=== PATIENT | female | born 2005 | race Caucasian/White ===

== ENCOUNTER 2024-07-07 20:30 | Emergency (ER) | payer OTHER, SELFPAY ==
[2024-07-07 20:41] VITALS: BP 135/92; PULSE 99; RESP 17; TEMP 36.7; O2SAT 99
[2024-07-07 20:50] VITALS: BP 135/81; PULSE 117; RESP 19; TEMP 38.5; O2SAT 97; BMI 30.9
[2024-07-07] MEDS: acetaminophen 325 mg Tablet 650 MG PO (21:20)
[2024-07-07] MEDS: ondansetron 2 mg/ML SDV 2 mL 4 MG IVP (21:21)
--- NOTE | 2024-07-07 21:21 | ED_ITS ---
HPI - Fever 2 General: Chief Complaint: Fever Stated Complaint: Body Aches\V\F Time Seen by Provider: 07/07/24 21:03 History of Present Illness: Healthy 18-year-old who presents the emergency room with nausea, vomiting, diarrhea and bodyaches. She also has been having fever. She has temp of 101.3 here. She says she has not kept anything down all day today. No abdominal pain. No chest pain. Related Data Previous Rx's ?Medication ?Instructions ?Recorded ondansetron 8 mg disintegrating 8 mg PO Q6H #14 tabs 0 07/07/24 tablet Allergies Allergy/AdvReac Type Severity Reaction Status Date / Time amoxicillin Allergy ALGY-Hives Verified 07/07/24 20:55 Review of Systems 2 Narrative: Constitutional symptoms: Negative except as documented in HPI. Skin symptoms: Negative except as documented in HPI. Eye symptoms: Negative except as documented in HPI. ENMT symptoms: Negative except as documented in HPI. Respiratory symptoms: Negative except as documented in HPI. Cardiovascular symptoms: Negative except as documented in HPI. Gastrointestinal symptoms: Negative except as documented in HPI. Genitourinary symptoms: Negative except as documented in HPI. Musculoskeletal symptoms: Negative except as documented in HPI. Neurologic symptoms: Negative except as documented in HPI. Psychiatric symptoms: Negative except as documented in HPI. Endocrine symptoms: Negative except as documented in HPI. Physical Exam 2 Narrative: EXAM NARRATIVE: General: Alert, no acute distress. Skin: Warm, dry. Head: Normocephalic, atraumatic. Neck: Supple, trachea midline. Eye: Extraocular movements are intact. Ears, nose, mouth and throat: mucosa moist. Cardiovascular: Regular, Normal peripheral perfusion. Respiratory: Lungs are clear to auscultation, respirations are non-labored, breath sounds are equal, Symmetrical chest wall expansion. Gastrointestinal: Soft, Nontender, Non distended Musculoskeletal: Normal ROM, no deformity. Neurological: Alert and oriented, No focal neurological deficit observed. Psychiatric: Cooperative, appropriate mood & affect. Course 2 Vital Signs: Vital signs: Vital Signs Temperature 101.3 F H 07/07/24 20:50 Pulse Rate 117 H 07/07/24 20:50 Respiratory Rate 19 H 07/07/24 20:50 Blood Pressure 135/81 07/07/24 20:50 Pulse Oximetry 97 07/07/24 20:50 Oxygen Delivery Me thod Room Air 07/07/24 20:50 MDM - Fever Medical Decision Making Medical decision making: Differential diagnosis for this patient with nausea and vomiting including but not limited to and based on the above HPI, review of systems and physical exam: Urinary tract infection. Appendicitis. Cholecystis. colitis. small bowel obstruction. crohn's flare. pancreatitis. gastritis. peptic ulcer. cyclic vomiting. Viral illness. Influenza. COVID. Orders placed to evaluate differential diagnosis based on the above differential, HPI and physical exam Lab Review: Laboratory results were reviewed and interpreted by myself the emergency room physician. Mild leukocytosis. No anemia. No renal failure. Urinary evaluation is negative for infection. Does have a few reds. Flu COVID and RSV are negative I reviewed the patient's medical record. Reexamination: Patient is now tolerating p.o. Patient remained stable. No increased work of breathing. No altered mental status. No focal motor deficits. Assessment and plan: Viral gastroenteritis Dehydration Fever ?IV fluids, IV Zofran and p.o. Tylenol in the emergency room. - Discharged home - Discussed plan with patient. Answered any questions. - Evaluation and treatment of this problem were appropriate in the emergency setting. Lab Data 07/07/24 21:07/07/24 21: Laboratory Results WBC 14.93 10^3/uL (4.5-13.0) H 07/07/24: RBC 4.77 10^6/uL (3.85-5.65) 07/07/24 21: Hgb 13.60 g/dL (12.4-14.8) 07/07/24: Hct 41.7 % (36-47) 07/07/24 21: MCV 87.4 fl (85-98) 07/07/24 21: MCH 28.5 pg (27-33) 07/07/24 21: MCHC 32.6 g/dL (30-55) 07/07/24 21: RDW 13.2 % (12.1-15.1) 07/07/24 21: Plt Count 335 10^3/cmm (157-399) 07/07/24 21: MPV 8.8 fL (7.4-10.4) 07/07/24: Neut % (Auto) 91.3 % 07/07/24: Lymph % (Auto) 4.2 % 07/07/24: [place] % (Auto) 4.0 % 07/07/24: Eos % (Auto) 0.0 % 07/07/24: Baso % (Auto) 0.2 % 07/07/24: Neut # (Auto) 13.63 10^3/uL (1.8-8.0) H 07/07/24: Lymph # (Auto) 0.6 10^3/uL (1.5-6.5) L 07/07/24: [place] # (Auto) 0.6 10^3/uL (0.2-0.9) 07/07/24: Eos # (Auto) 0.0 10^3/uL (0.0-0.8) 07/07/24: Baso # (Auto) 0.0 10^3/uL (0.0-0.1) 07/07/24 Nucleated RBC % (auto) 0 % 07/07/24 Nucleated RBCs # 0.0 /100WBC 07/07/24: Sodium 136 mmol/L (136-145) 07/07/24: Potassium 4.1 mmol/L (3.5-5.1) 07/07/24: Chloride 99 mmol/L (98-107) 07/07/24: Carbon Dioxide 23 mmol/L (22-29) 07/07/24: Anion Gap 18.1 (5-19) 07/07/24: BUN 18 mg/dL (6-20) 07/07/24: Creatinine 0.9 mg/dL (0.5-0.9) 07/07/24: GFR Calculation 80.7 mL/min (90-130) L 07/07/24: Glucose 118 mg/dL (65-115) H 07/07/24: Calculated Osmolality 285 mOsm/kg (285-295) 07/07/24: Calcium 9.2 mg/dL (8.5-10.5) 07/07/24: Total Bilirubin 0.5 mg/dL (0.15-1.2) 07/07/24 21: AST 15 U/L (0-32) 07/07/24 21: ALT 15 U/L (0-33) 07/07/24 21: Alkaline Phosphatase 79 U/L (35-105) 07/07/24 21: Total Protein 8.0 g/dL (6.6-8.7) 07/07/24 21: Albumin 4.6 g/dL (3.5-5.2) 07/07/24: Globulin 3.4 g/dL (1.3-4.6) 07/07/24 21: Lipase 20 U/L (13-60) 07/07/24 21: HCG, Qual Negative (Negative) 07/07/24 21: Urine Color Yellow (Yellow) 07/07/24 21: Urine Appearance Clear (CLEAR) 07/07/24 21: Urine pH 7.0 (5-7) 07/07/24: Ur Specific [place] 1.030 (1.005-1.030) 07/07/24 21: Urine Protein Trace (Negative) A 07/07/24 21: Urine Glucose (UA) Negative (Normal) 07/07/24 21: Urine Ketones Trace (Negative) 07/07/24 21: Urine Blood 1+ (Negative) A 07/07/24 21: Urine Nitrate Negative (Negative) 07/07/24 21: Urine Bilirubin Negative (Negative) 07/07/24 21: Urine Urobilinogen 1.0 mg/dL (Negative) 07/07/24 21: Ur Leukocyte Esterase Trace (Negative) A 07/07/24 21: Urine RBC 21-50 /hpf (0-2) H 07/07/24 21: Urine WBC 6-10 /hpf (0-5) 07/07/24 21: Ur Squamous Epith Cells 6-10 /hpf (0-5) 07/07/24 21: Amorphous Sediment Not Reportable 07/07/24 21: Urine Bacteria Trace /hpf (NONE) 07/07/24 21: Hyaline Casts 0.40 /lpf 07/07/24 21:15 Influenza A (PCR) Negative (Negative) 07/07/24 21:33 Influenza Type B (PCR) Negative (Negative) 07/07/24 21:33 RSV (PCR) Negative (Negative) 07/07/24 21:33 SARS-CoV-2 (PCR) Negative (Negative) 07/07/24 21:33 No radiology studies performed this visit Discharge Plan Discharge Patient Disposition: Home Clinical Impression: Viral gastroenteritis Condition: Stable Prescriptions: New ondansetron 8 mg tablet,disintegrating 8 mg PO Q6H Qty: 14 0RF Rx Instructions: Take 1/2-1 tab every 6 hours as needed for nausea and vomiting Discharge Orders: Discharge ED (Routine); Ordered 07/07/24 Ordered By: Shantelle Gandara Patient Instructions: Opioid Safety, Pain Management Activity Restrictions/Additional Instructions: Thank you for choosing [facility] for your healthcare needs today. Please realize this is an emergency room and that we are providing you with a medical screening exam and this may not be complete and all inclusive of all the testing and or work up that you may need to determine your ailment or severity of your illness. You have been screened and evaluated and felt safe for discharge. Health conditions do change or evolve sometimes and as such it is important that you follow up with your Primary Doctor to be re checked, 3-5 days is a general good time frame for follow up. You are always welcome to return to the ED for re assessment if your symptoms are worsening or you have new concerns Print Language: Setswana Coding Level of Care Code ED [employer] for Martha Silva
[2024-07-07] MEDS: sodium chloride 0.9% 1,000 ML 999 ML IV (21:27)
[2024-07-07 21:40] LABS: Basophils % 0.2 %; Hematocrit 41.7 % (36-47); Lymphocytes # 0.6 10^3/uL (1.5-6.5); Lymphocytes % 4.2 %; Mean Corpuscular HGB Conc 32.6 g/dL (30-55); Mean Corpuscular Hemoglobin 28.5 pg (27-33); Mean Corpuscular Volume 87.4 fl (85-98); Mean Platelet Volume 8.8 fL (7.4-10.4); Monocytes # 0.6 10^3/uL (0.2-0.9); Neutrophils # 13.63 10^3/uL (1.8-8.0); Neutrophils % 91.3 %; Nucleated Red Blood Cells % 0 %; Platelet Count 335 10^3/cmm (157-399); Red Blood Count 4.77 10^6/uL (3.85-5.65); Red Cell Distribution Width 13.2 % (12.1-15.1); White Blood Count 14.93 10^3/uL (4.5-13.0)
[2024-07-07 21:42] LABS: Bilirubin Urine Negative (Negative); Blood Urine 1+ (Negative); Glucose Urine UA Negative (Normal); Ketones Urine Trace (Negative); Leukocyte Esterase Urine Trace (Negative); Nitrate Urine Negative (Negative); Protein Urine Trace (Negative); Urine Appearance Clear (CLEAR); Urine Color Yellow (Yellow)
[2024-07-07 21:47] LABS: Add Urine Microscopic? YES; Bacteria Urine Trace /hpf; RBC Urine 21-50 /hpf (0-2)
[2024-07-07 21:50] LABS: HCG, Serum Qual Negative (Negative)
[2024-07-07 21:56] LABS: Alanine Aminotransferase 15 U/L (0-33); Albumin Level 4.6 g/dL (3.5-5.2); Alkaline Phosphatase 79 U/L (35-105); Anion Gap 18.1 (5-19); Aspartate Amino Transferase 15 U/L (0-32); Blood Urea Nitrogen 18 mg/dL (6-20); Calcium 9.2 mg/dL (8.5-10.5); Carbon Dioxide 23 mmol/L (22-29); Chloride 99 mmol/L (98-107); Creatinine Clr Calc Pharmacy 103.9274; Globulin 3.4 g/dL (1.3-4.6); Glomerular Filtration Rate 80.7 mL/min (90-130); Glucose 118 mg/dL (65-115); Lipase 20 U/L (13-60); Osmolality Calculated 285 mOsm/kg (285-295); Potassium 4.1 mmol/L (3.5-5.1); Sodium 136 mmol/L (136-145); Total Bilirubin 0.5 mg/dL (0.15-1.2)
[2024-07-07 22:17] LABS: Influenza A NEGATIVE (Negative); Influenza B NEGATIVE (Negative); Respiratory Syncytial Virus Ce NEGATIVE (Negative); SARS-CoV-2 PCR NEGATIVE (Negative)
[2024-07-07 23:02] VITALS: BP 121/61; PULSE 99; O2SAT 99
[2024-07-07] MEDS: ondansetron hcl ODT 4 mg Tab 8 MG PO (23:02)
== END 2024-07-07 23:04 | disposition home or self-care (01) ==
PROVIDERS: Emergency Medicine; Emergency Provider Emergency Medicine
DX: A08.4 Viral intestinal infection, unspecified (principal); Z11.52 Encounter for screening for COVID-19
CPT/HCPCS: 36415; 80053; 81001; 83690; 84703; 85025; 87637; 96361; 96374; 99284; J2405; J7030; J9999; Q0162